=== PATIENT | female | born 1970 | race American Indian/Alaskan Native ===

== ENCOUNTER 2022-01-29 13:55 | Emergency (ER) | payer OTHER ==
[2022-01-29] MEDS ORDERED: LORazepam 2 MG/ML VIAL IV PRN ×2 (15:30)
[2022-01-29] MEDS ORDERED: chlordiazePOXIDE 25 MG CAP PO PRN (15:30)
[2022-01-29] MEDS ORDERED: LORazepam 2 MG TAB PO PRN (15:30)
--- NOTE | 2022-01-29 15:32 | Emergency Department Report ---
ED General Adult HPI - General Chief complaint: Seizure Stated complaint: SEIZURES Time Seen by Provider: 01/29/22 15:09 Source: patient, family, EMS ( EMS documentation not available at time of chart dictation ), RN notes reviewed Mode of arrival: Stretcher Limitations: No Limitations - History of Present Illness Initial comments: The patient was evaluated in the emergency department for symptoms described in the history of present illness. He/she was evaluated in the context of the global COVID-19 pandemic, which necessitated consideration that the patient might be at risk for infection with the virus that causes COVID-19. Institutional protocols and algorithms that pertain to the evaluation of patients at risk for COVID-19 are in a state of rapid change based on information released by regulatory bodies including the CDC and federal and [facility] organizations. These policies and algorithms were followed during the patient's care in the emergency department. Please note that these policies, procedures and recommendations changed on a rapid basis. This is a 51-year-old female who reports that she is not . She reports that she has a history of hypertension and seizures. She reports that she takes Trileptal, 600 mg twice daily, and zonisamide, 400 mg, nightly. She is visiting from [place]. Her additional medications include carvedilol, spironolactone, Norvasc and valsartan. The patient is accompanied by her family member who also provides history of present illness. The patient reports that she was in her usual state of health while driving in the car with family members, when she had a seizure or convulsion. She believes that she bit her tongue. She thinks that she had 3 seizures today. She feels like she is back to her baseline. Her last seizure was about a month ago. She is only visiting for the weekend. She currently denies headache, neck pain, chest pain, abdominal pain, shortness of breath and urinary symptoms. The patient reports that she minimally consumes alcohol. She reports she has not had an alcohol withdrawal seizure. The patient reports that she does not drive or operate motor vehicles. The patient denies recreational drug use. The patient endorses that she has tongue pain, and anxiety. -: Sudden Severity scale (0 -10): 0 Consistency: now resolved Improves with: none Worsens with: none Associated Symptoms: denies other symptoms - Related Data Previous Rx's Medication Instructions Recorded Last Taken Type Metoclopramide [Reglan] 10 mg PO QID PRN #30 tablet 01/29/22 Unknown Rx Multivitamin with Folic Acid [[facility] 400 mcg PO QDAY #30 tablet 01/29/22 Unknown Rx One Daily Essential Tablet] chlordiazePOXIDE [Librium] 25 mg PO Q6H PRN #25 capsule 01/29/22 Unknown Rx Allergies Allergy/AdvReac Type Severity Reaction Status Date / Time No Known Allergies Allergy Unverified 01/29/22 16:12 ED Review of Systems ROS: Stated complaint: SEIZURES Other details as noted in HPI Comment: All other systems reviewed and negative Gastrointestinal: nausea Neurological: other (Seizure. Tongue biting) Psychiatric: anxiety ED Past Medical Hx - Medications Home Medications: Home Medications Medication Instructions Recorded Confirmed Last Taken Type Metoclopramide [Reglan] 10 mg PO QID PRN #30 tablet 01/29/22 Unknown Rx Multivitamin with Folic Acid [[facility] 400 mcg PO QDAY #30 tablet 01/29/22 Unknown Rx One Daily Essential Tablet] chlordiazePOXIDE [Librium] 25 mg PO Q6H PRN #25 capsule 01/29/22 Unknown Rx ED Physical Exam - General Limitations: No Limitations General appearance: alert, anxious, obese - Head Head exam: Present: atraumatic, normocephalic - Eye Eye exam: Present: normal appearance, PERRL, EOMI. Absent: nystagmus - ENT ENT exam: Present: normal exam, normal orophraynx, mucous membranes moist, normal external ear exam - Neck Neck exam: Present: normal inspection, full ROM. Absent: tenderness, meningismus - Respiratory Respiratory exam: Present: normal lung sounds bilaterally. Absent: respiratory distress, wheezes, rales, rhonchi, stridor, decreased breath sounds - Cardiovascular Cardiovascular Exam: Present: regular rate, normal rhythm, normal heart sounds. Absent: bradycardia, tachycardia, irregular rhythm, systolic murmur, diastolic murmur, rubs, gallop - GI/Abdominal GI/Abdominal exam: Present: soft. Absent: distended, tenderness, guarding, rebound, rigid, pulsatile mass - Extremities Exam Extremities exam: Present: normal inspection, full ROM, other (2+ pulses noted in the bilateral upper and lower extremities. There is no palpable cord. negative Homans sign. Muscular compartments are soft. The pelvis is stable.). Absent: pedal edema, calf tenderness - Back Exam Back exam: Present: normal inspection, full ROM. Absent: tenderness, CVA tenderness (R), CVA tenderness (L), paraspinal tenderness, vertebral tenderness - Neurological Exam Neurological exam: Present: alert, oriented X3, normal gait, other (No facial droop. Tongue midline. Extraocular movements intact bilaterally. Facial sensation intact to light touch in V1, V2, V3 distribution bilaterally. 5 and a 5 strength in 4 extremities. Sensation intact to light touch in 4 extremities.). Absent: motor sensory deficit - Psychiatric Psychiatric exam: Present: anxious - Skin Skin exam: Present: warm, dry, intact, normal color. Absent: rash ED Course Vital Signs 01/29/22 13:58 Temperature 98.1 F Pulse Rate 90 Respiratory 18 Rate Blood Pressure 117/87 [Left] O2 Sat by Pulse 98 Oximetry - Reevaluation(s) Reevaluation #1: 01/29/22 17:34 Differential diagnosis, including not limited to: Seizure, pseudoseizure, electrolyte derangement, alcohol withdrawal seizure Assessment and plan: 51-year-old female, with report of seizures. She is clinically sober with a GCS of 15. She has an NIH score of 0. When I initially talked to the patient, she appears quite anxious, and tremulous, and has minimal tongue fasciculations. I suspect that this patient has a component of alcohol withdrawal. She has not had any seizures since she has been here in the department. Transaminitis is suggestive of alcoholic liver disease. Loaded patient with Keppra, give her Valium, gentle fluids, and provide Trileptal. Our pharmacy does not have zonisamide. Patient reports that she does not need a refill on her medications. Patient advised to not drive or operate motor vehicles for the next 6 months. EKG is pending. IV fluids for mild dehydration 01/29/22 17:36 01/29/22 18:58 No convulsions noted. Patient provided water, which she was able to drink without difficulty. She is ambulatory with a steady gait. Discussed all findings with patient. She articulates understanding. Reports that family members are reliable to pick her up. Reports he does not require refills at this time. Patient observed in the department for hours without clinical decompensation ED Medical Decision Making - Lab Data Result diagrams: 01/29/22 16:01/29/22 16:05 Vital Signs 01/29/22 13:58 Temperature 98.1 F Pulse Rate 90 Respiratory 18 Rate Blood Pressure 117/87 [Left] O2 Sat by Pulse 98 Oximetry Lab Results 01/29/22 01/29/22 01/29/22 Range/Units 16:05 16:05 16:05 Hgb 11.8 (10.1-14.3) gm/dl Hct 34.7 (30.3-42.9) % Plt Count 304 (140-440) K/mm3 Sodium 143 (137-145) mmol/L Potassium 4.4 (3.6-5.0) mmol/L Chloride 101.7 (98-107) mmol/L Carbon Dioxide 21 L (22-30) mmol/L Anion Gap 25 mmol/L BUN 27 H (7-17) mg/dL Creatinine 1.6 H (0.6-1.2) mg/dL Estimated GFR 34 ml/min BUN/Creatinine Ratio 17 % Glucose 97 (65-100) mg/dL Calcium 9.2 (8.4-10.2) mg/dL Magnesium 2.80 H (1.7-2.3) mg/dL Total Bilirubin 0.70 (0.1-1.2) mg/dL AST 289 H (5-40) units/L ALT 193 H (7-56) units/L Alkaline Phosphatase 77 (35-129) units/L Total Creatine Kinase 297 H (30-135) units/L Total Protein 7.3 (6.3-8.2) g/dL Albumin 4.7 (3.9-5) g/dL Albumin/Globulin Ratio 1.8 % Salicylates < 0.3 L (2.8-20.0) mg/dL Acetaminophen (10.0-30.0) ug/mL Plasma/Serum Alcohol (0-0.07) % 01/29/22 01/29/22 Range/Units 16:05 16:05 Hgb (10.1-14.3) gm/dl Hct (30.3-42.9) % Plt Count (140-440) K/mm3 Sodium (137-145) mmol/L Potassium (3.6-5.0) mmol/L Chloride (98-107) mmol/L Carbon Dioxide (22-30) mmol/L Anion Gap mmol/L BUN (7-17) mg/dL Creatinine (0.6-1.2) mg/dL Estimated GFR ml/min BUN/Creatinine Ratio % Glucose (65-100) mg/dL Calcium (8.4-10.2) mg/dL Magnesium (1.7-2.3) mg/dL Total Bilirubin (0.1-1.2) mg/dL AST (5-40) units/L ALT (7-56) units/L Alkaline Phosphatase (35-129) units/L Total Creatine Kinase (30-135) units/L Total Protein (6.3-8.2) g/dL Albumin (3.9-5) g/dL Albumin/Globulin Ratio % Salicylates (2.8-20.0) mg/dL Acetaminophen 5.0 L (10.0-30.0) ug/mL Plasma/Serum Alcohol < 0.01 (0-0.07) % - EKG Data -: EKG Interpreted by Co EKG shows normal: sinus rhythm Rate: normal - EKG Data When compared to previous EKG there are: previous EKG unavailable 01/29/22 18:58 The EKG is interpreted at 18: 40 Sinus rhythm, with a rate of 85 bpm. Normal axis, normal P wave axis, QTC 4 6 2 ms. Poor R wave progression. Nonspecific T wave abnormalities. No endorsement of chest pain. Abnormal EKG. Not a STEMI. No prior for comparison - Radiology Data Radiology results: report reviewed, image reviewed CHEST 1 VIEW 01/29/2022 4:00 PM INDICATION / CLINICAL INFORMATION: seizure w n/v. COMPARISON: None available. FINDINGS: SUPPORT DEVICES: None. HEART / MEDIASTINUM: No significant abnormality. LUNGS / PLEURA: No significant pulmonary or pleural abnormality. No pneumothorax. ADDITIONAL FINDINGS: No significant additional findings. IMPRESSION: 1. No acute findings. Signer Name: Olegario James MD Signed: 01/29/2022 3:06 PM Workstation Name: [id number] CT BRAIN: 01/29/2022 INDICATION / CLINICAL INFORMATION: report of 3 seizures today. COMPARISON: None available. FINDINGS: BRAIN/INTRACRANIAL STRUCTURES: Unenhanced CT images of the brain demonstrate no evidence of acute abnormality. Ventricles and sulci are normal in size and shape. There is no evidence of acute ischemic injury, hemorrhage, or mass. There are no abnormal extra-axial fluid collections. EXTRACRANIAL STRUCTURES: Unremarkable. IMPRESSION: No acute abnormality All CT scans at this location are performed using dose reduction to ALARA by means of automated exposure control. Signer Name: Sal Sahu MD Signed: 01/29/2022 3:54 PM Workstation Name: [id number] Critical care attestation.: If time is entered above; I have spent that time in minutes in the direct care of this critically ill patient, excluding procedure time. ED Disposition Clinical Impression: Dehydration, Seizure, Transaminitis Disposition: 01 HOME / SELF CARE / HOMELESS Is pt being admited?: No Does the pt Need Aspirin: No Condition: Good Additional Instructions: Do not drive or operate motor vehicles for the next 6 months. Avoid consumption of alcohol, tobacco and smoke products. Take the Librium as needed for sensation of alcohol withdrawal. Patient may continue Trileptal, and zonisamide. Patient may also take the Librium as needed and prescribed, and multivitamin as needed and directed. Please drink at least 4 to 6 cups of water per day. Recommend follow-up with an outpatient primary care doctor or neurology specialist within the next 5 to 7 days. Please have your outpatient physician contact medical records department, to obtain copies of laboratory studies and imaging studies, and follow-up on nonemergent incidental abnormal findings. Please return to the emergency room right away with new pain, worsened pain, migration of pain, projectile vomiting, change in mental status, confusion, inability tolerate liquid feeds, new, worsened or different symptoms not present on the initial emergency room evaluation Minimize consumption of acetaminophen and Tylenol containing products Prescriptions: Multivitamin with Folic Acid [[facility]vs One Daily Essential Tablet] 400 mcg PO QDAY #30 tablet chlordiazePOXIDE [Librium] 25 mg PO Q6H PRN #25 capsule PRN Reason: Alcohol Withdrawal Metoclopramide [Reglan] 10 mg PO QID PRN #30 tablet PRN Reason: Nausea Referrals: TWYLA LAURENT MD [Staff Physician] - 3-5 Days ADRIÁN KARIMI MD [Staff Physician] - 3-5 Days [facility] [Provider Group] - 3-5 Days Forms: Work/School Release Form(ED)
--- NOTE | 2022-01-29 16:10 | XRay Report ---
CHEST 1 VIEW 01/29/2022 4:00 PM INDICATION / CLINICAL INFORMATION: seizure w n/v. COMPARISON: None available. FINDINGS: SUPPORT DEVICES: None. HEART / MEDIASTINUM: No significant abnormality. LUNGS / PLEURA: No significant pulmonary or pleural abnormality. No pneumothorax. ADDITIONAL FINDINGS: No significant additional findings. IMPRESSION: 1. No acute findings. Signer Name: Olegario James MD Signed: 01/29/2022 4:06 PM Workstation Name: [id number]
[2022-01-29 16:40] LABS: Albumin 4.7 g/dL (3.9-5); Calcium 9.2 mg/dL (8.4-10.2)
[2022-01-29 16:48] LABS: Hematocrit 34.7 % (30.3-42.9); Hemoglobin 11.8 gm/dl (10.1-14.3)
--- NOTE | 2022-01-29 16:58 | Cat Scan Report ---
CT BRAIN: 01/29/2022 INDICATION / CLINICAL INFORMATION: report of 3 seizures today. COMPARISON: None available. FINDINGS: BRAIN/INTRACRANIAL STRUCTURES: Unenhanced CT images of the brain demonstrate no evidence of acute abn ormality. Ventricles and sulci are normal in size and shape. There is no evidence of acute ischemic injury, hemorrhage, or mass. There are no abnormal extra-axial fluid collections. EXTRACRANIAL STRUCTURES: Unremarkable. IMPRESSION: No acute abnormality All CT scans at this location are performed using dose reduction to ALARA by means of automated expos ure control. Signer Name: Sal Sahu MD Signed: 01/29/2022 4:54 PM Workstation Name: [id number]
[2022-01-29] MEDS ORDERED: diazePAM 10 MG/2 ML SYRINGE IV ONE (17:00)
[2022-01-29] MEDS ORDERED: LIDOCAINE VISCOUS 2% 15 ML ORAL LIQD PO ONE (17:00)
[2022-01-29] MEDS ORDERED: ONDANSETRON 4 MG/2 ML INJ IV ONE (17:00)
[2022-01-29] MEDS ORDERED: levETIRAcetam 1000 MG/NS 0.75% 1,000 MG/100 ML BAG IV ONE (17:00)
[2022-01-29] MEDS ORDERED: OXcarbazepine 300 MG TAB PO ONE (17:31)
[2022-01-29 19:41] VITALS: BP 121/82
--- NOTE | 2022-02-01 09:48 | Electrocardiograph Report ---
[facility] Test Date: 2022-01-29 Test Time: 18:39:49 Pat Name: RAJENDRA NEWMAN Department: Room: Gender: F [employer] Coordinator: ER : 1970 Requested By: TYRONE BAUER Order Number: [id number] Reading MD: Rio Florian Measurements Intervals [place] Rate: 85 P: 64 ND: 126 QRS: 5 QRSD: 90 T: 27 QT: 389 QTc: 462 Interpretive Statements Sinus rhythm No previous ECG available for comparison Electronically Signed On 02-01-2022 9:48:24 EDT by Rio Florian
== END 2022-01-29 19:15 | disposition home or self-care (01) ==
LOC: ED 13:55
DX: R56.9 Unspecified convulsions (principal); R53.1 Weakness; R74.01 Elevation of levels of liver transaminase levels
CPT/HCPCS: 36415; 70450; 71045; 80053; 82550; 83735; 85014; 85018; 85049; 93005; 96365; 96375; 99285; J1953; J2405; J3360; 80320; G0480